=== PATIENT | male | born 1950 | race Caucasian/White ===

== ENCOUNTER 2019-06-05 13:54 | Emergency (ER) | payer MEDICARE, BC, OTHER ==
[2019-06-05] MEDS ORDERED: NS 0.9% 1000 ML** 1,000 ML IV ONE (14:20)
[2019-06-05] MEDS ORDERED: diPHENhydraMINE IV* 50 MG/ML 1 ml VIAL (BENADRYL) IV ONE (14:20)
[2019-06-05] MEDS ORDERED: Famotidine IV* 10 MG/ML 2 ML (20 mg) IV SLOW PU ONE (14:20)
--- NOTE | 2019-06-05 14:20 | ED ---
Skin Complaint - HPI Summary HPI Summary: This patient is a 68 year old M presenting to [facility] accompanied by his with a chief complaint of rashes since last night and tongue/lip swelling since earlier today. Pt states that he developed a rash in the genital and armpit area yesterday afternoon. He notes sleep was difficult last night and that he vomited during the night. The next day the pt went to urgent care. He came to the ED because his tongue was swelling on the left side and his lower lip was swollen. His speech was impeded by his lower lip. The patient rates the pain 0/ 10 in severity. Symptoms aggravated by nothing. Symptoms alleviated by nothing. Patient denies diarrhea. Medications reviewed. Allergies noted. PMHx of HTN, stents placed. 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 Skin Exposure Onset/Duration: Days Ago - rashes since last night and tongue/ lip swelling since earlier today. Timing: Constant Onset Severity: Moderate Current Severity: Moderate Pain Intensity: 0 Pain Scale Used: 0-10 Numeric Aggravating Symptom(s): Nothing Alleviating Symptom(s): Nothing Associated Signs & Symptoms: Vomiting, Rash - Allergy/Home Medications Allergies/Adverse Reactions: Allergies Allergy/AdvReac Type Severity Reaction Status Date / Time amoxicillin [From Augmentin] Allergy Hives Verified 06/05/19 14:02 clavulanic acid Allergy Hives Verified 06/05/19 14:02 [From Augmentin] enalaprilat [From Vasotec] Allergy Coughing Verified 06/05/19 14:02 NSAIDS (Non-Steroidal Allergy Unknown Verified 06/05/19 14:02 Anti-Inflamma Reaction Details Home Medications: Home Medications Allopurinol TAB* [Zyloprim 100 MG TAB*] 100 mg PO DAILY 06/05/19 [History Confirmed 06/05/19] Aspirin EC TAB* [Ecotrin EC Low Dose 81 MG*] 81 mg PO DAILY 06/05/19 [History Confirmed 06/05/19] Atorvastatin* [Lipitor*] 20 mg PO .3 TIMES WEEKLY 06/05/19 [History Confirmed ] Calcium Carb, Citrate/Vit D3 [Calcium+D3 Gradual Releas] 1 tab PO DAILY [History Confirmed 06/05/19] Clindamycin Cap(NF) [Clindamycin Cap 300 mg Cap(NF)] 150 mg PO ONCE 06/05/19 [ History Confirmed 06/05/19] Clopidogrel TAB* [Plavix TAB*] 75 mg PO DAILY 06/05/19 [History Confirmed ] Cyanocobalamin INJ * [Vitamin B12 INJ *] 1,000 mcg IM MONTHLY 06/05/19 [History Confirmed 06/05/19] Hydrochlorothiazide TAB* [Hydrodiuril TAB*] 12.5 mg PO DAILY 06/05/19 [History Confirmed 06/05/19] Hydrocodone/Acetaminophen [Hydrocodone-Acetamin 10-325 mg] 1 each PO Q6HR PRN [History Confirmed 06/05/19] Losartan TAB* [Cozaar TAB*] 50 mg PO BID 06/05/19 [History Confirmed 06/05/19] Multivitamins/Minerals TAB* [Theragran/minerals TAB*] 1 tab PO DAILY 06/05/19 [ History Confirmed 06/05/19] Nitroglycerin TAB 0.4 MG* 0.4 mg SL Q5M PRN 06/05/19 [History Confirmed 06/05/19 ] Pantoprazole TAB * [Protonix TAB*] 40 mg PO DAILY 06/05/19 [History Confirmed ] Ubidecarenone [Coq-10] 100 mg PO BID 06/05/19 [History Confirmed 06/05/19] amLODIPine TAB* [Norvasc 5 mg TAB*] 5 mg PO DAILY 06/05/19 [History Confirmed ] PMH/Surg Hx/FS Hx/Imm Hx Previously Healthy: No Cardiovascular History: Reports: Hx Hypertension Sensory History: Denies: Hx Vision Problem EENT History: Denies: Hx Deafness, Hx Auditory Problems - Surgical History Surgical History: Yes Infectious Disease History: No Infectious Disease History: Denies: Traveled Outside the [place] in Last 30 Days - Family History Known Family History: Positive: None - Social History Lives: With Family Hx Substance Use: No Hx Tobacco Use: No Review of Systems Constitutional: Other - positive - speech was impeded by his lower lip Positive: Vomiting. Negative: Diarrhea Positive: Edema - tongue/lip Positive: Rash All Other Systems Reviewed And Are Negative: Yes Physical Exam - Summary Physical Exam Summary: Constitutional: Well-developed, Well-nourished, Alert. (-) Distressed Skin: Warm, Dry. Hives on bilateral thighs and back HENT: Normocephalic; Atraumatic. Lower lip edematous, no pharyngeal edema no tongue edema Eyes: Conjunctiva normal Neck: Musculoskeletal ROM normal neck. (-) JVD, (-) Stridor, (-) Tracheal deviation Cardio: Rhythm regular, rate normal, Heart sounds normal; Intact distal pulses; The pedal pulses are 2+ and symmetric. Radial pulses are 2+ and symmetric. (-) Murmur Pulmonary/Chest wall: Effort normal. (-) Respiratory distress, (-) Wheezes, (-) Rales Abd: Soft, (-) tenderness, (-) Distension, (-) Guarding, (-) Rebound Musculoskeletal: (-) Edema Lymph: (-) Cervical adenopathy Neuro: Alert, Oriented x3 Psych: Mood and affect Normal Triage Information Reviewed: Yes Vital Signs On Initial Exam: Initial Vitals Temp Pulse Resp BP Pulse Ox 98.4 F 61 16 157/91 99 06/05/19 13:56 06/05/19 13:56 06/05/19 13:56 06/05/19 13:56 06/05/19 13:56 Vital Signs Reviewed: Yes Diagnostics - Vital Signs Vital Signs Temp Pulse Resp BP Pulse Ox 06/05/19 13:56 98.4 F 61 16 157/91 99 - Laboratory Lab Statement: Any lab studies that have been ordered have been reviewed, and results considered in the medical decision making process. Re-Evaluation - Re-Evaluation First Eval Re-Evaluation Time: 15:04 Change: Improved Comment: Pt is feeling better. Lip swelling is going down. Second Eval Re-Evaluation Time: 16:15 Comment: Pt feels better, rash is gone. Pt will be discharged. Course/Dx - Course Course Of Treatment: Patient is here with a urticarial rash and angioedema. Patient has swelling to his lower lip. Patient swelling to his tongue at home which has resolved. Patient has a pharyngeal edema and is overall well- appearing. Patient is given Pepcid and Benadryl here. Patient's symptoms resolved while he is in the department. Patient is on losartan which could be causing angioedema. Patient has an allergy to enalapril and his mother had angioedema to enalapril. There could be some familial history with this patient was encouraged to not take his losartan until cleared by his primary care doctor. - Diagnoses Provider Diagnoses: Anaphylaxis, Angioedema Discharge ED - Sign-Out/Discharge Documenting (check all that apply): Patient Departure - discharge Patient Received Moderate/Deep Sedation with Procedure: No - Discharge Plan Condition: Stable Disposition: HOME Patient Education Materials: Anaphylaxis (ED), Angioedema (ED) Referrals: [facility] [place] [facility] [Outside] No Primary Care Phys,NOPCP [Primary Care Provider] - Additional Instructions: Please stop taking your losartan until talking to your primary care doctor Please return if you have worsening swelling of her lips, swelling of her tongue , difficulty breathing, vomiting, diarrhea Please follow up with the primary care referral service here - Billing Disposition and Condition Condition: STABLE Disposition: Home - Attestation Statements Document Initiated by Adam: Yes Documenting Scribe: Yogesh Patel Provider For Whom Adam is Documenting (Include Credential): Dr. Atul Romero MD Scribe Attestation: Yogesh Cardoso scribed for Dr. Atul Romero MD on 06/05/19 at 1732. Scribe Documentation Reviewed: Yes Provider Attestation: The documentation as recorded by the Yogesh bowen accurately reflects the service I personally performed and the decisions made by me, Dr. Atul Romero MD Status of Scribe Document: Viewed
[2019-06-05 16:56] VITALS: BP 140/87
== END 2019-06-05 16:57 | disposition home or self-care (01) ==
LOC: ED 13:54
DX: T78.2XXA Anaphylactic shock, unspecified, initial encounter (principal); T78.3XXA Angioneurotic edema, initial encounter; Y92.9 Unspecified place or not applicable; I10 Essential (primary) hypertension; Z79.82 Long term (current) use of aspirin; Z79.899 Other long term (current) drug therapy; Z88.6 Allergy status to analgesic agent; Z88.1 Allergy status to other antibiotic agents; Z88.8 Allergy status to other drugs, medicaments and biological substances
CPT/HCPCS: 96361; 96374; 96375; 99282; J1200